=== PATIENT | female | born 1995 | race Hispanic/Latino ===

== ENCOUNTER 2018-07-27 12:24 | Emergency (ER) | payer SELFPAY ==
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
--- NOTE | 2018-07-27 13:19 | RAD REPORT ---
EXAM DESCRIPTION: CT - CTFB CLINICAL HISTORY: Facial pain;Pain;Swelling COMPARISON: No comparisons TECHNIQUE: Axial 2 mm thick images of the face were obtained with sagittal and coronal reconstructio n images. All CT scans are performed using dose optimization technique as appropriate and may include automated exposure control or mA/KV adjustment according to patient size. FINDINGS: No acute facial bone fracture is seen.The mandible is intact. The globes and orbital contents are grossly unremarkable.The paranasal sinuses and mastoids are clear except for a 14 mm mucous retention cyst or polyp in the inferior left maxillary antrum. . IMPRESSION: Negative for facial bone fracture.
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
== END 2018-07-27 13:50 | disposition home or self-care (01) ==
LOC: ER 12:24
DX: R51 Headache (principal); V49.50XA Passenger injured in collision with unspecified motor vehicles in traffic accident, initial encounter
CPT/HCPCS: 70450; 70486; 76377; 99284